=== PATIENT | male | born 1995 | race Caucasian/White ===

== ENCOUNTER 2018-02-05 00:10 | Inpatient (IN) ==
[2018-02-05] MEDS ORDERED: SALINE FLUSH 10ml SYRINGE IVF PRN (00:21)
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
[2018-02-05] MEDS ORDERED: NS 1,000 ML IV ONE (00:30)
[2018-02-05] MEDS: 1/2 NS 1,000 ML IV SCH ×2 (01:59→13:19)
[2018-02-05] MEDS ORDERED: MORPHINE SULFATE 4mg INJECTION IVP PRN (02:33)
[2018-02-05] MEDS ORDERED: HALOPERIDOL 5 MG/ML INJECTION IVP PRN (02:33)
[2018-02-05] MEDS ORDERED: ONDANSETRON 4 MG/2 ML INJECTION IVP PRN (02:33)
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
[2018-02-05 03:07] VITALS: BMI 24.7
--- NOTE | 2018-02-05 07:53 | CT Scan Report ---
Indication: ams PROCEDURE: CT cervical spine wo con: Encounter: Initial Comparison: None Technique: Axial CT images through the cervical spine were performed without contrast. Coronal and sagittal reformatted images were also obtained. Automated Exposure Control and Iterative Reconstruction dose reducing techniques were utilized. FINDINGS: The alignment of the cervical spine is straightened which could be positional or due to muscular spasm/strain. There is no evidence of acute fracture or subluxation of the cervical spine. The facet joints are well aligned with preservation of the intervertebral disk and facet joints. The atlantoaxial articulation, dens, and upper cervical spine demonstrate no subluxation. There is no evidence of significant spinal stenosis, foraminal compromise, or significant disk herniation. Sinus disease. IMPRESSION: No acute traumatic abnormality of the cervical spine. There is a preliminary report by [facility]. .
--- NOTE | 2018-02-05 07:54 | CT Scan Report ---
Indication: CHI PROCEDURE: CT head/brain wo con: Encounter: Initial Comparison: None Technique: Axial CT images through the head were performed without contrast. Iterative Reconstruction dose reducing technique was utilized. FINDINGS: The ventricles are of normal size, shape, and configuration for the patient's age. There is no evidence of acute intracranial hemorrhage, midline displacement, or mass effect. The CT attenuation of the brain parenchyma is normal within the cerebellum, brain stem, and cerebral hemispheres. The tympanic cavities and mastoid air cells are free of appreciable disease. There are no definite fractures of the skull base, calvarium, or visualized portion of the midface. Sinus disease. IMPRESSION: No CT evidence of acute traumatic intracranial injury. There is a preliminary report by [facility]. .
[2018-02-05] MEDS: ENOXAPARIN 40 MG/0.4 ML INJECTION SQ SCH (09:22)
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
[2018-02-06 08:34] VITALS: TEMP 97.9
[2018-02-06] MEDS: ENOXAPARIN 40 MG/0.4 ML INJECTION SQ SCH (10:32)
--- NOTE | 2018-02-06 11:48 | Discharge Summary ---
Discharge Information Date of admission: 02/05/18 01:53 Anticipated date of discharge: 02/06/18 Attending Physician: Natalie Tuttle MD Consults: 02/05/18 09:08 Case Management Consult [CONS] Routine Reason For Exam: ETOH/DRUG ABUSE 02/05/18 12:07 Physician Consult [CONS] Routine Consulting Provider: Dianna Betancourt Reason For Exam: ETOH, Meth, abn behavior Ordering Provider has Notified Mail Processing Machine Operator: Yes - Discharge Diagnosis (1) Hypernatremia Status: Acute (2) Encephalopathy Status: Acute (3) Alcohol intoxication Status: Acute (4) Dehydration Status: Acute (5) Polysubstance abuse Status: Acute - Laboratory Labs: 02/06/18 05:46 - Radiology Radiology: CT spine 02/05/18 IMPRESSION: No acute traumatic abnormality of the cervical spine. CT head IMPRESSION: No CT evidence of acute traumatic intracranial injury. History of Present Illness HPI: Admit, Telehospitalists:Mr. Cordova is a 22yo man with no known past medical history except substance abuse who cannot provide history due to intoxication and substance abuse leading to acute hypernatremia. Please see ED provider documentation. Patient was brought in by police/EMS after call to them regarding patient's lewd behavior (having intercourse with a tailpipe). Patient was given a liter of NS in the ED and ativan for agitation. He required leather restraints due to agitation. He moves symmetric and tries to answer questions, but cannot purposefully do so. Parag: Pt seen this am. He does not wake up enough to talk to. I returned to see the patient this afternoon and he is much more awake and willing to talk. The last thing he remembers is hanging out with his buddies last night around 5 PM. He does know that he was drinking and using methamphetamines. He denies feeling any fever or chills cold or flu like symptoms. He denies any shortness of breath. He denies any chest pain pressure. He denies palpitations. He denies nausea or vomiting, diarrhea, constipation, melena, thematic easier. He denies any problems with genitourinary system except that he doesn't want the Jaime in anymore. He denies any problems with walking, lower extremity edema. Spoke with Dr. Betancourt who does think pt would benefit from inpt facility. I spoke with CM who reported that he would have to have SACK eval. SW then saw pt and pt is agreeable to inpt facility and would like to go from here to that facility if possible. I did explain to him that it may not be an option but I would recheck with SW. He is feeling well this am. He is pleasant and appreciative. He denies fever, chills, cough or SOA. No CP or palp. No N/V/D/C. Urinating fine. Walking without difficulty. Labs all normalized. He is ready to go once we know the plan. Objective Vital signs: Temperature 97.9 F 02/06/18 08:33 Pulse Rate 94 02/06/18 09:45 Respiratory Rate 15 02/06/18 09:45 Blood Pressure 138/62 02/06/18 09:01 Pulse Oximetry 98 02/06/18 09:45 Height/Weight/BMI: Height 1.73 m Weight 73.2 kg Body Mass Index 24.7 Comments: Gen: Alert and oriented. NAD, Pleasant Skin: warm and dry. HEENT: NC/AT PERRL, EOMI, sclera, lids and conjunctiva wnl. MMM. OP clear. Neck: supple, No JVD, Carotids 2+ without bruits. Lungs: Clear. No rales, rhonchi or wheezes Heart: regular. No murmur, rub or gallop Abdomen: soft. ND. +BS. MS: No edema. Neuro: no focal deficit Psy: patient was pleasant, poor judgment Hospital Course This is a general summary of the patient's hospital course. For more details refer to the complete medical record. Hospital course: The patient was admitted to sleep off his alcohol and meth intoxication. He did require some sedation and restraints due to his bizarre behavior. By the next morning he was doing much better. He was pleasant and conversive. He still had some mildly abnormal lab values. He was kept another night and and his lab values normalized. Social work and the case management had a long discussion with him as well as his mother. The plan was for his mother to pick him up today and take him to his SACK evaluation this afternoon and subsequent plan thereafter. The patient would like to go inpatient and hopefully he will have that opportunity. He was up and ambulating. Vital signs were stable. He was felt to be stable to discharged. Time spent with patient: 25 - 35 minutes Discharge Plan - Discharge Disposition Discharge Date: 02/06/18 (Pt going home with Mother, [facility] hays today in [place]) Disposition: 01 Discharged Home, Self-Care *Condition: Stable Reason For Visit (Visit label in EMR): hypernatremia - Discharge Medications *Discharge Medications: No Action No known Home medications [No home meds] 0 #0 misc - Discharge Packet/Instructions *Diet: As tolerated *Activity: As tolerated *Pain Management/Treatment: Tylenol *Wound Care: N/A *Expected Signs/Symptoms: N/A *Notify Physician if: N/A *During Business Hours Contact: N/A *After Business Hours Contact: N/A - Referrals/Follow Up - Patient Handouts - Dismissal Complete Discharge Instructions are:: Complete Physician Narrative - Narrative Attestation Narrative: Date: 02/06/18 Time: 1143
[2018-02-06 13:21] VITALS: BP 124/59; PULSE 95; RESP 24; O2SAT 99
== END 2018-02-06 13:30 | disposition home or self-care (01) | DRG 92 ==
LOC: ED 00:10 → CCU 01:53 → SUATTDRO 01:53 → CCU 02:15
PROVIDERS: ADMIT Hospitalist; ATTEND Internal Medicine Cardiovascular Disease